=== PATIENT | male | born 1990 | race Caucasian/White ===

== ENCOUNTER 2017-12-11 22:01 | Emergency (ER) | payer OTHER ==
[~2017-12-11] VITALS: Ht 182.9 cm; Wt 158.8 kg
[2017-12-11 22:21] VITALS: BP 114/70
[2017-12-11] MEDS ORDERED: WATER ONE (22:26)
[2017-12-11] MEDS ORDERED: ULTRAM PO STA (22:51)
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
[2017-12-11] MEDS ORDERED: SILVER SULFADIAZINE TP ONE (22:58)
[2017-12-11] MEDS ORDERED: ULTRAM ONE (22:59)
[2017-12-11] MEDS ORDERED: SILVER SULFADIAZINE TP SCH (23:00)
[2017-12-11 23:25] VITALS: BP 114/70
== END 2017-12-11 23:19 | disposition home or self-care (01) ==
LOC: ER 22:01
DX: T23.201A Burn of second degree of right hand, unspecified site, initial encounter (principal); X08.8XXA Exposure to other specified smoke, fire and flames, initial encounter; Y93.89 Activity, other specified; Y92.89 Other specified places as the place of occurrence of the external cause; Y99.8 Other external cause status
CPT/HCPCS: 99284; 16020